=== PATIENT | male | born 1965 | race Caucasian/White ===

== ENCOUNTER 2021-06-21 11:07 | Emergency (ER) | payer OTHER, SELFPAY ==
--- NOTE | ~2021-06-21 | XR_ITS ---
EXAMINATION: XR ribs RT 2V w CXR 2V INDICATION: Right posterior rib and flank pain TECHNIQUE: Frontal and lateral views of the chest 3 views of the right ribs were obtained. COMPARISON: 03/01/2015 FINDINGS: The lungs are free of acute opacities. There is no pleural effusion or pneumothorax. The ca rdiomediastinal silhouette is normal. There is moderate thoracic spondylosis. 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 There is an acute fracture at the anterolateral aspect of the right 11th rib. There is a nondisplaced fracture posteriorly in the right 12th rib. IMPRESSION: 1. Acute fractures of the right 11th and 12th ribs. 2. No acute cardiopulmonary abnormality. Reviewed, dictated and finalized at location [facility]. [facility]
--- NOTE | ~2021-06-21 | CT_ITS ---
EXAMINATION: CTA chest PE abdomen pel EXAM DATE: 06/21/2021 14:30 INDICATION: Pleuritic cp, recent rib fx, elevated dimer. TECHNIQUE: Spiral CTA of the chest (pulmonary arteries) was performed with 100 cc Omnipaque 350 intr avenous contrast injection. Images were acquired during the pulmonary arterial phase. Coronal maxi mum intensity projection 3D-reconstructions were created by the technologist on dedicated workstation . Axial, coronal and sagittal reformatted images were reviewed. Spiral CT of the abdomen and pelvis was then performed with the same intravenous contrast injection. Axial, coronal and sagittal reform atted images were reviewed. The dose-length product (DLP) for this examination was 723.18 mGy-cm. T he exposure was tailored according to patient size (auto mA exposure control), and iterative reconst ruction (ASIR) was used as additional dose reduction technique. Comparison is made to prior examinati on from 04/01/2015. FINDINGS: CHEST: Acute right 11th and 12th rib fractures. Pulmonary arteries are well opacified and without int raluminal filling defects. Decreased attenuation within a right lower lobe pulmonary vein on this pu lmonary arterial phase probably an flow of unopacified blood, now decreased attenuation on the subseq uent scan of the abdomen and pelvis in this vessel. No thoracic aortic dissection. There is 5 mm righ t upper lobe nodule anteriorly with smooth margins, image 46. The lungs are otherwise clear. There are no pleural or pericardial effusions. Tracheobronchial tree is patent. There is no mediastinal , hilar or axillary lymphadenopathy. There is no pneumothorax. Heart normal in size. There is m ild coronary arterial calcification, arterial sclerosis. ABDOMEN PELVIS: The liver, spleen, adrenal glands and pancreas are unremarkable. Gallbladder is unre markable. No biliary obstruction. Portal and splenic veins are patent. Kidneys enhance symmetrical ly. There is no hydronephrosis. The prostate is unremarkable. The bladder is unremarkable. There is no retroperitoneal or pelvic lymphadenopathy. Small bilateral inguinal fat-containing hernias. The appendix is not positively visualized. There is no pericecal inflammatory change to suggest appe ndicitis. The stomach and small bowel are unremarkable. There is expected amount of colonic stool. No free intraperitoneal gas. Subacute right L3 transverse process fracture. IMPRESSION: 1. Acute right 11th, 12th rib fractures. 2. Subacute right L3 transverse process fracture. 3. Right upper lobe nodule consistent with most likely postinfectious. If patient has risk factor fo r lung cancer, optional 12 month follow-up chest CT. 4. No pulmonary emboli. Reviewed, dictated and finalized at location [facility]. P [facility] IMPRESSION: 1. Acute right 11th, 12th rib fractures. 2. Subacute right L3 transverse process fracture. 3. Right upper lobe nodule consistent with most likely postinfectious. If chau ent has risk factor for lung cancer, optional 12 month follow-up chest CT. 4. No pulmonary emboli.
[2021-06-21 11:14] VITALS: BP 142/73; PULSE 58; RESP 16; TEMP 36.2; O2SAT 94
[2021-06-21 11:55] LABS: Basophils Absolute Auto 0.1 K/mm3 (0.0-0.1); Basophils Percent Auto 0.5 % (0.2-1.2); Eosinophils Absolute Auto 0.1 K/mm3 (0-0.3); Eosinophils Percent Auto 0.5 % (0-4.4); Hematocrit 49.2 % (42.0-52.0); Hemoglobin 17.4 g/dL (14.0-18.0); Immature Granulocyte Absolute 0.04 K/mm3 (0.00-0.031); Immature Granulocyte Percent A 0.4 % (0-0.5); Lymphocytes Absolute Auto 2.03 K/mm3 (0.9-3.2); Lymphocytes Percent Auto 18.6 % (18.3-44.2); Mean Corpuscular HGB Conc 35.4 g/dl (32-36); Mean Corpuscular Hemoglobin 31.2 pg (26-34); Mean Corpuscular Volume 88.3 fl (80-100); Mean Platelet Volume 9.2 fl (7.4-10.4); Monocytes Absolute Auto 1.1 K/mm3 (0.1-0.6); Monocytes Percent Auto 10.4 % (2.6-8.5); Neutrophils Absolute Auto 7.6 K/mm3 (1.3-6.7); Neutrophils Percent Auto 69.6 % (45.5-73.1); Platelet Count Result 385 k/mm3 (150-375); Red Blood Count 5.57 M/mm3 (4.6-6.20); Red Cell Distribution Width 13.1 % (11.5-14.5); White Blood Count 10.9 K/mm3 (4.5-10.0)
[2021-06-21 12:01] LABS: Add Urine Microscopic? YES; Appearance Urine Clear (Clear); Bilirubin Urine Negative (Negative); Blood Urine Negative (Negative); Color Urine Amber (Yellow); Glucose Urine UA Negative (Negative); Ketones Urine Negative (Negative); Leukocyte Esterase Ur Negative LEU/UL (Negative); Mucus Urine Heavy /lpf; Nitrate Urine Negative (Negative); Protein Urine 1+ mg/dL (Negative); Specific Grav Ur 1.027 (1.001-1.035); Squamous Epithelial Cell Urine Rare /hpf (Few); WBC Urine 0-3 /hpf
--- NOTE | 2021-06-21 12:07 | ED.MALEGU ---
HPI - Male Genitourinary General Chief complaint: Urogenital-Male Stated complaint: flank pain Time Seen by Provider: 06/21/21 11:26 Source: patient Mode of arrival: ambulatory Limitations: no limitations History of Present Illness HPI Narrative: This is a 55 year old male that presents to the ER for right sided mid back pain present x 3 days. The pain is worse with certain movement and breathing. He has not taken anything for pain. He saw his primary doctor who told him he had blood in his urine which prompted him to be seen in the ER for a possible kidney stone. Denies fever, chest pain, shortness of breath, abdominal pain, vomiting, or dysuria. Related Data Allergies Allergy/AdvReac Type Severity Reaction Status Date / Time No Known Allergies Allergy Unknown Unverified 02/18/20 14:45 Review of Systems Review of Systems: CONSTITUTIONAL: Denies fever CARDIOVASCULAR: Denies chest pain RESPIRATORY: Denies dyspnea. GASTROINTESTINAL: Denies abdominal pain, nausea, vomiting GENITOURINARY: Denies dysuria or hematuria. MUSCULOSKELETAL: Reports back pain, and myalgia. All systems reviewed & are unremarkable except as noted in HPI and below PMFSH Past Medical History Medical History (Updated 06/21/21 @ 15:51 by Carrie Castellanos PA-C) History of depression History of hyperlipidemia Social History Social History (Updated 06/21/21 @ 12:11 by Carrie Castellanos PA-C) Substance use: never Exam Narrative: GENERAL: Well-appearing, well-nourished, and in no acute distress. HEAD: Normocephalic, atraumatic. EYES: EOMI. CHEST: Clear to auscultation. No respiratory distress. No wheezes rales or rhonchi HEART: Regular rate and rhythm. No murmur heard. Normal peripheral pulses. ABDOMEN: Soft, nontender, nondistended, normal active bowel sounds. No CVA tenderness. Tender to palpation of the right latissimus dorsi musculature EXTREMITIES: Normal range of motion. No edema. SKIN: Warm, dry, no rash. NEURO: No focal deficits. Alert and oriented x3. PSYCH: Normal mood and affect Course Consultations Consultation #1: Spoke with Dr. Thurston about patient and workup who reports patient may follow up in clinic Date: 06/21/21 Time: 15:39 Vital Signs Vital signs: Vital Signs Temperature 97.2 F L 06/21/21 11:14 Pulse Rate 58 L 06/21/21 11:14 Respiratory Rate 16 06/21/21 11:14 Blood Pressure 142/73 H 06/21/21 11:14 Pulse Oximetry 94 06/21/21 11:14 Temperature 97.2 F L 06/21/21 11:14 Pulse Rate 58 L 06/21/21 11:14 Respiratory Rate 16 06/21/21 11:14 Blood Pressure 142/73 H 06/21/21 11:14 Pulse Oximetry 94 06/21/21 11:14 MDM - Male Genitourinary MDM Narrative Medical decision making narrative: Patient presents to the emergency department for right-sided flank pain ongoing over the last 3 or 4 days. His primary doctor noted microscopic hematuria, so was sent here for evaluation of possible kidney stone. He is afebrile and nontoxic-appearing. He is neurologically intact. CBC with mild leukocytosis to 10.9. Metabolic panel with elevation of blood glucose of 174. Hemoglobin A1c was sent. No known history of diabetes. UA without evidence of infection. Does show hematuria. D-dimer was elevated, so CTA of the chest/abdomen pelvis was obtained. This shows acute right 11th and 12th rib fractures. Also shows a subacute right L3 transverse process fracture. Right upper lobe nodule consistent with most likely postinfectious. 12-month CT chest follow-up if needed. From pulmonary emboli. Patient was updated on case findings. He does report he had a ground-level fall at work a couple of weeks ago where he tripped over something and landed on his right side. Spoke with Dr. Thurston about patient and workup, who reviewed imaging. Patient may follow-up in ortho spine clinic. Patient is stable and felt appropriate for further outpatient evaluation. Was given an incentive spirometer and instructed on use. He was also instr
[2021-06-21] MEDS: diazePAM INJ (*CRX) 10 MG/2 ML SYRINGE 5 MG IV PUSH (12:23)
[2021-06-21 12:24] LABS: Alanine Aminotransferase 21 U/L (4-50); Albumin Level 4.8 g/dL (3.5-5.1); Alkaline Phosphatase 80 U/L (38-126); Anion Gap 9 mmol/L (8-16); Aspartate Amino Transferase 26 U/L (17-59); Bilirubin,Total 1.1 mg/dL (0.2-1.3); Blood Urea Nitrogen 13 mg/dL (9-20); Calcium 9.4 mg/dL (8.4-10.2); Carbon Dioxide 26 mmol/L (22-30); Chloride 101 mmol/L (98-107); Estimated CRCL calculation 70 ml/min; Estimated Glomerular Filt Rate > 60; Glucose 174 mg/dL (65-110); Lipase 68 U/L (23-300); Potassium 4.4 mmol/L (3.4-5.0); Sodium 136 mmol/L (137-145)
[2021-06-21 13:43] LABS: Prothrombin Time 12.8 Seconds (11.1-14.7)
[2021-06-21 13:44] LABS: Partial Thromboplastin Time 29.2 SECONDS (22.3-36.8)
[2021-06-21 13:46] LABS: D Dimer 0.71 ug/mL (<0.48)
[2021-06-21 16:00] VITALS: BP 143/94; PULSE 68; RESP 16; O2SAT 100
[2021-06-21 19:41] LABS: Hemoglobin A1C 5.5 % (<5.7)
== END 2021-06-21 16:00 | disposition home or self-care (01) ==
PROVIDERS: Physician Assistant; Emergency Provider Emergency Medicine; PCP Emergency Medicine
DX: S22.41XA Multiple fractures of ribs, right side, initial encounter for closed fracture (principal); S32.009A Unspecified fracture of unspecified lumbar vertebra, initial encounter for closed fracture; F32.A Depression, unspecified; E78.5 Hyperlipidemia, unspecified; Y33.XXXA Other specified events, undetermined intent, initial encounter
CPT/HCPCS: 36415; 71046; 71100; 71275; 74177; 80053; 81001; 83036; 83690; 85025; 85380; 85610; 85730; 96365; 96375; 99284; J0131; J3360; Q9967